=== PATIENT | male | born 1975 | race African-American/Black ===

== ENCOUNTER 2022-03-10 22:36 | Emergency (ER) | payer BC ==
[2022-03-11] MEDS ORDERED: Ketorolac Tromethamine 30 MG/ML VIAL ONE (00:49)
== END 2022-03-11 01:10 | disposition home or self-care (01) ==
LOC: ERS 22:36
DX: M54.12 Radiculopathy, cervical region (principal); I10 Essential (primary) hypertension
CPT/HCPCS: 96372; 99283; J1885

== ENCOUNTER → 2024-07-03 | Day surgery (SDC) | payer BC ==
[~2024-07-03] MED LIST: Gadobenate Dimeglumine 2 ML, Sodium Chloride 0.9% 250 ML 10 ML, Iopamidol 8 ML, Lidocai... FS ONE; Magnevist 469MG/ML 20 ML VIAL ONE; Sodium Bicarbonate 2.5 MEQ/5 ML SDV ONE
== END ==
LOC: RAD 08:34
PROVIDERS: ATTEND Family Medicine Sports Medicine
PROC: BQ00YZZ Plain Radiography of Right Hip using Other Contrast (ICD-10-PCS; principal; 2024-07-03)
DX: M24.151 Other articular cartilage disorders, right hip (principal)
CPT/HCPCS: 27093; 76942; 77002; A9577; J0171; J7050; Q9967